=== PATIENT | female | born 1955 | race Caucasian/White ===

== ENCOUNTER 2019-07-23 11:21 | Day surgery (SDC) | payer MEDICARE, BC ==
[2019-07-23] MEDS ORDERED: Rocuronium* 10 MG/ML VIAL ONE (12:13)
[2019-07-23] MEDS ORDERED: Propofol* 10 MG/ML 20 ML BTL ONE (12:13)
[2019-07-23] MEDS ORDERED: Benzocaine/Butamben/Tetracain (CETACAINE - SINGLE USE) 5 gm TOPICAL ONE (13:35)
[2019-07-23] MEDS ORDERED: fentaNYL* 50 MCG/ML 2 ML VIAL (100 MCG VIAL) ONE (13:41)
[2019-07-23] MEDS ORDERED: Midazolam* 1 MG/ML 2 ML VIAL (2 MG) ONE (13:41)
[2019-07-23] MEDS ORDERED: Dexamethasone IV* 4 MG/ML 1 ML (4 MG) ONE (14:27)
[2019-07-23] MEDS ORDERED: Glycopyrrolate IV* 0.2 MG/ML 1 ML VIAL ONE (14:27)
[2019-07-23] MEDS ORDERED: Ondansetron INJ* 2 MG/ML VIAL ONE (14:27)
[2019-07-23] MEDS ORDERED: Naloxone* 0.4 MG/ML 1 ML VIAL IV PRN (14:28)
--- NOTE | 2019-07-23 15:32 | BRIEFOPN ---
Brief Operative/Procedure Note - Operation Details Pre-Op Diagnosis: Mediastinal adenopathy Post-Op Diagnosis: Mediastinal adenopathy Procedures: Bronchoscopy/EBUS Surgeon(s)/Proceduralists: [email or web address] Romero Anesthesia: [place]- Dr Martin Estimated Blood Loss: None Findings: No malignancy, no granulomas Specimen(s)/Culture(s) Description: Station7, R4 FNA sent for cytology, flow, endobronchial biopsy Complications: None
[2019-07-23 16:15] VITALS: BP 123/81
--- NOTE | 2019-07-23 23:31 | PRO ---
BRONCHOSCOPY REPORT: DATE OF PROCEDURE: 07/23/19 -[facility] PROCEDURE PERFORMED: Bronchoscopy with endobronchial ultrasound-guided fine needle aspiration of mediastinal and hilar nodes and endobronchial biopsy. PREPROCEDURAL DIAGNOSIS: Mediastinal adenopathy. ANESTHESIA: General anesthesia. ANESTHESIOLOGIST: Dr. Edgardo Martin. DESCRIPTION OF PROCEDURE: Informed consent was obtained from the patient prior to the procedure after all the risks and benefits were thoroughly explained. The patient was intubated with size 8.5 endotracheal tube. A flexible Olympus bronchoscope was inserted through ET tube after appropriate time-out was performed. ET tube positioning confirmed to be 3.5 cm above the level of jayna. Bronchoscope was then advanced. The patient was noted to have thick white secretions bilaterally, which were suctioned out. The patient was noted to have mucosal bleeding with minimal suction. No endobronchial lesions were noted. All airways were opened and patent. Bronchoscope was then withdrawn and EBUS bronchoscope was inserted. Station 7 was accessed with 4 passes. Rapid on-site evaluation revealed lymphatic tissue, no granulomas and no malignant cells were seen. Specimen was also placed in [employer] for flow cytometry analysis. Station R4 was then accessed with 2 passes. Rapid on-site evaluation revealed lymphatic tissue with no malignant cells or granulomas. EBUS bronchoscope was then withdrawn and Olympus bronchoscope was reinserted. Endobronchial biopsies were obtained from primary and secondary carinae with 4 passes. Specimen was placed in formalin. The patient tolerated the procedure well. The patient was extubated and seen in recovery in optimal condition. [id number]/CPS #: [id number] [facility]
== END 2019-07-23 16:45 | disposition home or self-care (01) ==
LOC: OR 11:21
PROVIDERS: ATTEND Internal Medicine
DX: R59.0 Localized enlarged lymph nodes (principal); R91.8 Other nonspecific abnormal finding of lung field; E78.5 Hyperlipidemia, unspecified; I10 Essential (primary) hypertension; I45.10 Unspecified right bundle-branch block; F41.8 Other specified anxiety disorders; R06.00 Dyspnea, unspecified; R07.9 Chest pain, unspecified
CPT/HCPCS: 88172; 88173; 88184; 88187; 88188; 88189; 88305; J1100; J2250; J2405; J2704; J3010

== ENCOUNTER 2020-12-09 13:41 | Inpatient (IN) ==
[2020-12-09] MEDS ORDERED: Morphine 4 MG/ML VIAL (1 ml) IV ONE (14:00)
[2020-12-09 14:46] LABS: ABS Lymphocytes 0.6 10^3/ul (1.0-4.8); ABS Monocytes 0.5 10^3/ul (0-0.8); ABS Neutrophils 9.2 10^3/ul (1.5-7.7); Eosinophil % 0.1 %; Hematocrit 40 % (35-47); Hemoglobin 13.7 g/dL (12.0-16.0); Lymphocyte % 6.1 %; Mean Corpuscular HGB Conc 34 g/dL (31-36); Mean Corpuscular Hemoglobin 33 pg (27-31); Mean Corpuscular Volume 97 fL (80-97); Mean Platelet Volume 9.3 fL (7.4-10.4); Platelet Count 196 10^3/uL (150-450); Red Blood Count 4.11 10^6 /uL (3.70-4.87); Red Cell Distribution Width 13 % (10-15); White Blood Count 10.5 10^3/uL (3.5-10.8)
[2020-12-09 15:03] LABS: ALT 10 U/L (7-52); AST 13 U/L (13-39); Albumin 3.8 g/dL (3.2-5.2); Albumin/Globulin Ratio 1.2 (1-3); Alkaline Phosphatase 61 U/L (35-149); Anion Gap 4 mmol/L (2-11); Blood Urea Nitrogen 9 mg/dL (6-24); C Reactive Protein 81.79 mg/L (<8.01); CO2 Carbon Dioxide 33 mmol/L (22-32); Calcium 9.7 mg/dL (8.6-10.3); Chloride 98 mmol/L (101-111); EGFR African American 108.1 (>60); EGFR Non-African American 89.3 (>60); Globulin 3.1 g/dL (2-4); Glucose 119 mg/dL (70-100); Lipase < 10 U/L (11.0-82.0); Potassium 4.4 mmol/L (3.5-5.0); Sodium 135 mmol/L (135-145); Total Protein 6.9 g/dL (6.4-8.9)
[2020-12-09] MEDS ORDERED: Ondansetron 4 mg VIAL 2 MG/ML 2 ml VIAL IV PRN (17:22)
[2020-12-09] MEDS ORDERED: HYDROmorphone 1 MG/1 ML SYRINGE IV SLOW PU PRN (17:22)
[2020-12-09 20:17] LABS: Urine Appearance Clear; Urine Bilirubin Negative (Negative); Urine Blood Negative (Negative); Urine Color Amber; Urine Glucose Negative (Negative); Urine Ketones 2+ (Negative); Urine Nitrite Negative (Negative); Urine Protein 1+(30 mg/dL) (Negative); Urine Specific Gravity 1.021 (1.002-1.030); Urine Urobilinogen Negative (Negative)
[2020-12-09 20:21] LABS: Urine Bacteria Absent (Absent); Urine Red Blood Cell Absent (Absent); Urine White Blood Cell Absent (Absent)
[2020-12-10] MEDS: Lactated Ringers 1000 ml BAG 1,000 ML IV SCH ×3 (00:03→13:41)
[2020-12-10] MEDS ORDERED: ceFAZolin 2 GM PREMIX 2 GM/50 ML BAG IVPB ONE (13:00)
[2020-12-10] MEDS ORDERED: ceFAZolin 2 GM PREMIX 2 GM/50 ML BAG ONE (13:11)
[2020-12-10] MEDS ORDERED: Midazolam 2 mg/2 ml VIAL 1 mg/ml 2 ml VIAL (2 mg) ONE (13:34)
[2020-12-10] MEDS ORDERED: Propofol 10 MG/ML 20 ML BTL ONE (13:34)
[2020-12-10] MEDS ORDERED: fentaNYL 250 mcg/5 ml 50 MCG/ML 5 ml VIAL (250 MCG) ONE (13:34)
[2020-12-10] MEDS ORDERED: Rocuronium 50 mg VIAL 10 mg/ml 5 ml VIAL (50 mg) ONE ×2 (13:35→16:02)
[2020-12-10] MEDS ORDERED: Lidocaine 2% PF 5 ML VIAL ONE (13:35)
[2020-12-10] MEDS ORDERED: Succinylcholine 200 mg VIAL 20 mg/ml 10 ml VIAL (200 mg) ONE (13:59)
[2020-12-10] MEDS ORDERED: Bupivacaine 0.25% EPI 200,000 30 ML SDV ONE ×2 (14:06→17:04)
[2020-12-10] MEDS ORDERED: Dexamethasone IV 4 MG/ML VIAL 1 ml VIAL ONE (14:34)
[2020-12-10] MEDS ORDERED: HYDROmorphone 1 MG/1 ML SYRINGE ONE ×2 (15:14→17:47)
[2020-12-10] MEDS ORDERED: Ondansetron 4 mg VIAL 2 MG/ML 2 ml VIAL ONE (16:46)
[2020-12-10] MEDS ORDERED: Phenylephrine 40 mcg/mL 10mL (400mcg) SYRINGE ONE (16:47)
[2020-12-10] MEDS ORDERED: HYDROmorphone 0.5 MG/0.5 ML SYRINGE IV SLOW PU PRN (17:24)
[2020-12-10] MEDS ORDERED: DiMENhydriNATE IV 50 mg/ml 1 ml VIAL IV PUSH PRN (17:43)
[2020-12-10] MEDS ORDERED: Naloxone 0.4 mg VIAL 0.4 mg/ml 1 ml VIAL IV PRN (17:43)
[2020-12-10] MEDS: HYDROmorphone 1 MG/1 ML SYRINGE IV PRN ×3 (17:53→18:11)
[2020-12-10] MEDS ORDERED: fentaNYL 100 mcg/2 ml 50 MCG/ML VIAL ONE (17:56)
[2020-12-10] MEDS: fentaNYL 100 mcg/2 ml 50 MCG/ML VIAL IV PRN ×2 (17:56→18:02)
[2020-12-11] MEDS: Lactated Ringers 1000 ml BAG 1,000 ML IV SCH ×3 (00:51→21:34)
[2020-12-11 04:56] LABS: ABS Monocytes 0.5 10^3/ul (0-0.8); ABS Neutrophils 5.7 10^3/ul (1.5-7.7); Eosinophil % 0.4 %; Hematocrit 33 % (35-47); Hemoglobin 11.1 g/dL (12.0-16.0); Lymphocyte % 13.6 %; Mean Corpuscular HGB Conc 34 g/dL (31-36); Mean Corpuscular Hemoglobin 33 pg (27-31); Mean Corpuscular Volume 98 fL (80-97); Mean Platelet Volume 9.2 fL (7.4-10.4); Platelet Count 163 10^3/uL (150-450); Red Blood Count 3.33 10^6 /uL (3.70-4.87); Red Cell Distribution Width 13 % (10-15); White Blood Count 7.3 10^3/uL (3.5-10.8)
[2020-12-11 05:15] LABS: Calcium 8.1 mg/dL (8.6-10.3); EGFR African American 114.1 (>60); EGFR Non-African American 94.3 (>60); Potassium 4.1 mmol/L (3.5-5.0)
[2020-12-11] MEDS: Pantoprazole VIAL 40 MG VIAL IV SCH (08:38)
[2020-12-11] MEDS: Cholecalciferol (VIT D3) 400 units TAB PO SCH (08:39)
[2020-12-11 11:22] LABS: INR 1.1 (0.82-1.09)
[2020-12-11] MEDS: Heparin 5000 UNITS/ML 1 mL VIAL SUBCUT SCH ×2 (14:51→21:39)
[2020-12-12] MEDS: Heparin 5000 UNITS/ML 1 mL VIAL SUBCUT SCH ×3 (06:34→21:40)
[2020-12-12] MEDS: Lactated Ringers 1000 ml BAG 1,000 ML IV SCH (07:38)
[2020-12-12] MEDS: Pantoprazole VIAL 40 MG VIAL IV SCH (07:47)
[2020-12-12] MEDS: Cholecalciferol (VIT D3) 400 units TAB PO SCH (07:48)
[2020-12-13] MEDS: Heparin 5000 UNITS/ML 1 mL VIAL SUBCUT SCH ×3 (05:27→21:57)
[2020-12-13] MEDS: Pantoprazole VIAL 40 MG VIAL IV SCH (08:23)
[2020-12-13] MEDS: Cholecalciferol (VIT D3) 400 units TAB PO SCH (08:23)
[2020-12-13] MEDS: Benzocaine/Menthol LOZ MT PRN ×2 (14:32→19:35)
[2020-12-14 05:06] LABS: ABS Eosinophils 0.2 10^3/ul (0-0.6); ABS Lymphocytes 0.7 10^3/ul (1.0-4.8); ABS Monocytes 0.4 10^3/ul (0-0.8); ABS Neutrophils 3.3 10^3/ul (1.5-7.7); Eosinophil % 4.3 %; Hematocrit 28 % (35-47); Hemoglobin 9.7 g/dL (12.0-16.0); Lymphocyte % 15.2 %; Mean Corpuscular HGB Conc 35 g/dL (31-36); Mean Corpuscular Hemoglobin 33 pg (27-31); Mean Corpuscular Volume 96 fL (80-97); Platelet Count 210 10^3/uL (150-450); Red Blood Count 2.93 10^6 /uL (3.70-4.87); Red Cell Distribution Width 13 % (10-15); White Blood Count 4.6 10^3/uL (3.5-10.8)
[2020-12-14] MEDS: Heparin 5000 UNITS/ML 1 mL VIAL SUBCUT SCH (05:42)
[2020-12-14] MEDS: Pantoprazole VIAL 40 MG VIAL IV SCH (09:00)
[2020-12-14] MEDS: Cholecalciferol (VIT D3) 400 units TAB PO SCH (09:02)
[2020-12-14 11:27] VITALS: BP 130/81
== END 2020-12-14 13:30 | disposition home or self-care (01) ==
LOC: SSU 13:41 → ED 13:41 → SSU 22:29
PROVIDERS: ADMIT Internal Medicine; ATTEND Surgery